=== PATIENT | female | born 1960 | race Caucasian/White ===

== ENCOUNTER 2016-04-11 13:19 | Emergency (ER) | payer OTHER ==
--- NOTE | 2016-04-11 17:58 | ED ORDER SUMMARY ---
..... Patient: JERO MARTINEZ OrderSheet [facility] VisitID: [id number] [place] [address] 55y, F Registration Date/Time: 04/11/2016 ORDER SHEET Weight: 90.7 kg (stated) Allergies: Aspirin, Latex, Statins GENERAL ORDERS: US Abdomen Limited (No) Urgent (14:20 04/11/2016 HBivens A.R.N.P.) (Ack 14:32 LTapper) (18:02 MWinterer R.N.) CBC w Diff Urgent (14:20 04/11/2016 HBivens A.R.N.P.) (Ack 14:32 LTapper) (14:38 DMaziarka R.N.) CMP Urgent (14:20 04/11/2016 HBivens A.R.N.P.) (Ack 14:32 LTapper) (14:38 DMaziarka R.N.) UA-Culture if indicated Urgent (14:20 04/11/2016 HBivens A.R.N.P.) (Ack 14:32 LTapper) (14:38 DMaziarka R.N.) Amylase Urgent (14:20 04/11/2016 HBivens A.R.N.P.) (Ack 14:32 LTapper) (14:38 DMaziarka R.N.) Lipase Urgent (14:20 04/11/2016 HBivens A.R.N.P.) (Ack 14:32 LTapper) (14:38 DMaziarka R.N.) MEDICATION ORDERS: IV FLUIDS: IV Saline Lock (14:20 04/11/2016 HBivens A.R.N.P.) (14:38 DMaziarka R.N.) ORDER SHEET NOTES: [Electronically signed by America Quevedo R.N. (18:57 04/11/2016)] [Electronically signed by Debi LunsfordR.N.P. (18:58 04/11/2016)] [Electronically locked/signed by America Quevedo R.N. (18:57 04/11/2016)]
--- NOTE | 2016-04-11 17:58 | ED NURSING NOTES ---
Clinical Report - Nurses [facility] [address] [place] [address] 04/11/2016 13:21 Patient: JERO MARTINEZ TRIAGE Triage time 13:57. Acuity: LEVEL 3. Chief Complaint: (Weakness wants answers to why she is not feeling well but has been worked up over a year ago). Alert. --14:02 America Quevedo R.N. 13:57 04/11/16. BP: 144/90. HR: 74. RR: 18. O2 saturation: 98%. Temp: 98 F. Pain level now 04/24. --14:02 America Quevedo R.N. Weight: 90.7 kg stated. Height/Length: 65 inches Per Patient. BMI: 33.3. --14:01 America Quevedo R.N. Medications Naprosyn Oral. --13:59 America Quevedo R.N. Tramadol HCL Oral. --13:59 America Quevedo R.N. MetFORMIN HCl Oral. --14:00 America Quevedo R.N. Ezetimibe Oral. --14:00 America Quevedo R.N. Allergies Aspirin. --14:00 America Quevedo R.N. Latex. --14:00 America Quevedo R.N. Statins. --14:00 America Quevedo R.N. History Arrived by private vehicle. Historian: patient. Primary physician ([facility]). Onset. (about 1 years). ( no specifics but just is "sick". Very vague with sx). PAST MEDICAL HX: Diabetes mellitus. Immunizations: up-to-date. SOCIAL HX: No alcohol use or drug use. --14:02 America Quevedo R.N. PHYSICAL ASSESSMENT GENERAL / NEURO / PSYCH: Alert. Oriented X 4. Appears anxious. HEENT: Pupils equal, round and reactive to light. RESPIRATORY: Respirations not labored. GI / : Abdomen soft and nontender. --14:03 America Quevedo R.N. NURSING PROGRESS NOTES Patient gowned. Call light placed in reach. Patient ready for evaluation- ED physician notified. --14:03 Amercia Quevedo R.N. Finger stick glucose: 89 mg/dL; performed by tech; result shown to the RN. --14:07 Lidna Hernández 14:38 04/11/2016 Site #1 started via IV in the right hand with an 18g angiocath; one attempt. Blood drawn: rainbow set. Labeled in the presence of the patient and sent to the lab. Saline lock flushed with 5 mL saline. --14:38 America Quevedo R.N. The patient is calm and resting quietly. --16:20 America Quevedo R.N. 16:19 04/11/16. BP: 125/76. HR: 77. RR: 20. O2 saturation: 100%. Pain level now 0/10. --16:20 America Quevedo R.N. Patient waiting for (Ultra sound). --16:20 America Quevedo R.N. ( Ultra sound in room). --17:06 America Quevedo R.N. DISPOSITION / DISCHARGE Departure time: 18:10. Condition at departure: improved. No learning barriers present. Discharge instructions provided and reviewed with the patient. Patient verbalized understanding. Written instructions provided in Montserr[place]. The patient was discharged home and accompanied by spouse. She left the Emergency Department ambulatory and via private vehicle. Spouse driving. --18:10 America Quevedo R.N. 18:08 04/11/16. BP: 141/94. HR: 73. RR: 16. O2 saturation: 100%. Pain level now 0/10. --18:10 America Quevedo R.N. Locked/Released at 04/11/2016 18:57 by America Quevedo R.N.
--- NOTE | 2016-04-11 17:58 | ED NURSING NOTES ---
Clinical Report - Nurses [facility] [address] [place] [address] 04/11/2016 13:21 Patient: JERO MARTINEZ TRIAGE Triage time 13:57. Acuity: LEVEL 3. Chief Complaint: (Weakness wants answers to why she is not feeling well but has been worked up over a year ago). Alert. --14:02 America Quevedo R.N. 13:57 04/11/16. BP: 144/90. HR: 74. RR: 18. O2 saturation: 98%. Temp: 98 F. Pain level now 04/24. --14:02 America Quevedo R.N. Weight: 90.7 kg stated. Height/Length: 65 inches Per Patient. BMI: 33.3. --14:01 America Quevedo R.N. Medications Naprosyn Oral. --13:59 America Quevedo R.N. Tramadol HCL Oral. --13:59 America Quevedo R.N. MetFORMIN HCl Oral. --14:00 America Quevedo R.N. Ezetimibe Oral. --14:00 America Quevedo R.N. Allergies Aspirin. --14:00 America Quevedo R.N. Latex. --14:00 America Quevedo R.N. Statins. --14:00 America Quevedo R.N. History Arrived by private vehicle. Historian: patient. Primary physician ([facility]sim). Onset. (about 1 years). ( no specifics but just is "sick". Very vague with sx). PAST MEDICAL HX: Diabetes mellitus. Immunizations: up-to-date. SOCIAL HX: No alcohol use or drug use. --14:02 America Quevedo R.N. PHYSICAL ASSESSMENT GENERAL / NEURO / PSYCH: Alert. Oriented X 4. Appears anxious. HEENT: Pupils equal, round and reactive to light. RESPIRATORY: Respirations not labored. GI / : Abdomen soft and nontender. --14:03 America Quevedo R.N. NURSING PROGRESS NOTES Patient gowned. Call light placed in reach. Patient ready for evaluation- ED physician notified. --14:03 America Quevedo R.N. Finger stick glucose: 89 mg/dL; performed by tech; result shown to the RN. --14:07 Linda Hernández 14:38 04/11/2016 Site #1 started via IV in the right hand with an 18g angiocath; one attempt. Blood drawn: rainbow set. Labeled in the presence of the patient and sent to the lab. Saline lock flushed with 5 mL saline. --14:38 America Quevedo R.N. The patient is calm and resting quietly. --16:20 America Quevedo R.N. 16:19 04/11/16. BP: 125/76. HR: 77. RR: 20. O2 saturation: 100%. Pain level now 0/10. --16:20 America Quevedo R.N. Patient waiting for (Ultra sound). --16:20 America Quevedo R.N. ( Ultra sound in room). --17:06 America Quevedo R.N. DISPOSITION / DISCHARGE Departure time: 18:10. Condition at departure: improved. No learning barriers present. Discharge instructions provided and reviewed with the patient. Patient verbalized understanding. Written instructions provided in Wallisian. The patient was discharged home and accompanied by spouse. She left the Emergency Department ambulatory and via private vehicle. Spouse driving. --18:10 America Quevedo R.N. 18:08 04/11/16. BP: 141/94. HR: 73. RR: 16. O2 saturation: 100%. Pain level now 0/10. --18:10 America Quevedo R.N. Locked/Released at 04/11/2016 18:57 by America Quevedo R.N.
--- NOTE | 2016-04-11 17:58 | ED ORDER SUMMARY ---
..... Patient: JERO MARTINEZ OrderSheet [facility] VisitID: [id number] [place] [address] 55y, F Registration Date/Time: 04/11/2016 ORDER SHEET Weight: 90.7 kg (stated) Allergies: Aspirin, Latex, Statins GENERAL ORDERS: US Abdomen Limited (No) Urgent (14:20 04/11/2016 HBivens A.R.N.P.) (Ack 14:32 LTapper) (18:02 MWinterer R.N.) CBC w Diff Urgent (14:20 04/11/2016 HBivens A.R.N.P.) (Ack 14:32 LTapper) (14:38 DMaziarka R.N.) CMP Urgent (14:20 04/11/2016 HBivens A.R.N.P.) (Ack 14:32 LTapper) (14:38 DMaziarka R.N.) UA-Culture if indicated Urgent (14:20 04/11/2016 HBivens A.R.N.P.) (Ack 14:32 LTapper) (14:38 DMaziarka R.N.) Amylase Urgent (14:20 04/11/2016 HBivens A.R.N.P.) (Ack 14:32 LTapper) (14:38 DMaziarka R.N.) Lipase Urgent (14:20 04/11/2016 HBivens A.R.N.P.) (Ack 14:32 LTapper) (14:38 DMaziarka R.N.) MEDICATION ORDERS: IV FLUIDS: IV Saline Lock (14:20 04/11/2016 HBivens A.R.N.P.) (14:38 DMaziarka R.N.) ORDER SHEET NOTES: [Electronically signed by America Quevedo R.N. (18:57 04/11/2016)] [Electronically signed by Debi LunsfordR.N.P. (18:58 04/11/2016)] [Electronically locked/signed by America Quevedo R.N. (18:57 04/11/2016)]
--- NOTE | 2016-04-11 17:58 | ED CLINICAL REPORT ---
Clinical Report - Physicians/Mid Levels [facility] [address] [place] [address] 04/11/2016 13:21 Patient: JERO MARTINEZ Time Seen: 1409; initial patient contact, initial documentation, patient care assumed. Arrived- By private vehicle. Historian- patient. HISTORY OF PRESENT ILLNESS Chief Complaint: ABDOMINAL PAIN. At its maximum, severity described as severe. When seen in the E.D., it was almost gone. It is described as "pain" and it is described as located in the right side of the back and right upper quadrant and radiating to the right upper back. This started about 1 1/2 years ago and is still present. No nausea, loss of appetite, vomiting or diarrhea. (c/o stool being beige/white color). No recent travel. Similar symptoms previously: Chronically, as bad. ( has had multiple tests and blood work, can't figure out why the stool is white). Recent medical care: The patient was seen recently in the office. ( saw dr marquez, had blood work done, was told if episode continued to go to er to have her gallbladder and liver checked). REVIEW OF SYSTEMS No constipation, black stools, hematemesis, difficulty with urination or pain with urination. No urinary frequency, bloody stools, fever, chest pain or difficulty breathing. All systems otherwise negative, except as recorded above. PAST HISTORY See nurses notes. PAST MEDICAL HX: Diabetes mellitus. Surgeries: Had hysterectomy. SOCIAL HISTORY Never smoker. No alcohol use or drug use. No recent travel. Is a local resident. FAMILY HISTORY Negative. ADDITIONAL NOTES The nursing notes have been reviewed with agreement regarding the chief complaint, HPI, ROS, PMH and patient medications and allergies. PHYSICAL EXAM Vital Signs: 04/11/2016 13:57 BP: 144/90. HR: 74. RR: 18. O2 saturation: 98%. Temp: 98 F. Have been reviewed as normal and appear to be correct. Appearance: Alert. Oriented X3. No acute distress. Eyes: Pupils equal, round and reactive to light. Eyes normal inspection. Neck: Normal inspection. Neck supple. CVS: Normal heart rate and rhythm. Heart sounds normal. Pulses normal. Respiratory: No respiratory distress. Breath sounds normal. Chest nontender. Abdomen: Soft. Mild tenderness in the right upper quadrant. Bowel sounds normal. No organomegaly. No mass. Tenderness present. Back: Normal inspection. Skin: Skin warm and dry. Normal skin color. No rash. Normal skin turgor. Extremities: Extremities exhibit normal ROM. No lower extremity edema. Neuro: Oriented X 3. No motor deficit. No sensory deficit. LABS, X-RAYS, AND EKG Abdominal Sonogram: Normal study. No acute disease. (per verbal report from [place]). Interpretation time: 17:39. Laboratory Tests: UA-Culture if indicated: (FRANK: 04/11/2016 14:30) ( MsgRcvd 04/11/2016 14:57) Final results Test Result Flag Units (Reference) URINE COLOR YELLOW URINE APPEARANCE CLEAR URINE GLUCOSE NEGATIVE (NEGATIVE) URINE BILIRUBIN NEGATIVE (NEGATIVE) URINE KETONE NEGATIVE (NEGATIVE) URINE SPECIFIC GRAVITY 1.010 (1.010-1.030) URINE PH 6.0 (5.0-8.0) URINE PROTEIN NEGATIVE (NEGATIVE) URINE UROBILINOGEN 0.2 EU/dL (0.2-1.0) URINE NITRITE NEGATIVE (NEGATIVE) URINE BLOOD TRACE-LYSED (NEGATIVE) URINE LEUK ESTERASE POSITIVE (NEGATIVE) URINE RBC 0-1 rbc/hpf (0-1) URINE WBC 5-10 wbc/hpf (0-1) URINE EPITHELIAL CELLS 3-5 EPI/hpf (0-5) URINE BACTERIA FEW (1+) (NONE SEEN) URINE COMMENT CULTURE INDICATED URINE CULTURES ARE SET-UP BASED ON THE FOLLOWING CRITERIA:POSITIVE NITRITEPOSITIVE LEUKOCYTE ESTERASEGREATER THAN 10 WHITE BLOOD CELLSMODERATE (2+) OR GREATER BACTERIA CBC w Diff: (FRANK: 04/11/2016 14:30) ( MsgRcvd 04/11/2016 14:58) Final results Test Result Flag Units (Reference) WHITE BLOOD COUNT 8.6 K/uL (4.5-11.5) RED BLOOD COUNT 4.82 M/uL (4.00-5.20) HEMOGLOBIN 14.5 gm/dL (12.0-16.0) HEMATOCRIT 43.0 % (36.0-46.0) MEAN CELL VOLUME 89 fL (80-100) MEAN CORPUSCULAR HGB 30 pg (26-34) MEAN CORPUSCULAR HGB CONC 34 g/dL (31-37) RED CELL DISTRIBUTION WIDTH 12.7 % (11.6-14.8) PLATELET COUNT 200 K/uL (150-400) NEUTROPHIL % 63.9 % (50-75) LYMPH % 28.3 % (25-40) MONO % 6.1 % (3-14) EOSINOPHIL % 1.3 % (0-4) BASOPHIL % 0.4 % (0-2) CMP: (FRANK: 04/11/2016 14:30) ( MsgRcvd 04/11/2016 15:10) Final results Test Result Flag Units (Reference) GLUCOSE 90 mg/dL (70-110) BUN 14 mg/dL (7-18) CREATININE 0.8 mg/dL (0.6-1.3) Estimated GFR >60 mL/min Estimated GFR- >60 mL/min Note: Persistent reduction over 3 months in eGFR<60 mL/min/1.73 m2 defines CKD. Patients with eGFR values>=60 mL/min/1.73 m2 may also have CKD if evidence ofpersistent proteinuria. Additional information may be foundat www.kidney.org. SODIUM 144 mmol/L (136-145) POTASSIUM 3.5 mmol/L (3.5-5.1) CHLORIDE 105 mmol/L (98-107) CARBON DIOXIDE 27 mmol/L (21-32) CALCIUM 8.7 mg/dL (8.5-10.1) TOTAL PROTEIN 7.2 g/dL (6.4-8.2) ALBUMIN 4.2 g/dL (3.3-5.0) BILIRUBIN, TOTAL 0.4 mg/dL (0.0-1.0) ALKALINE PHOSPHATASE 91 U/L (46-116) AST (SGOT) 22 U/L (15-37) ALT (SGPT) 31 U/L (12-78) LIPASE 162 U/L (73-393) AMYLASE 39 U/L (25-115) . PROGRESS AND PROCEDURES Patient counseled in person regarding the patient's stable condition, test results and diagnosis. 17:39. Differential Diagnosis: I considered gastritis, gastroenteritis, peptic ulcer disease, gastroesophageal reflux disease, acute appendicitis, diverticulitis, colon cancer, Crohn's disease, obstipation, biliary colic, cholecystitis, cholelithiasis, hepatitis, pancreatitis, common bile duct obstruction, hernia, urinary tract infection, ureterolithiasis and viral syndrome as a possible cause of abdominal pain in this patient. This is a partial list of diagnoses considered. Above considerations are based on history and physical exam. Differential diagnosis was discussed with patient. Disposition: Discharged home in good and improved condition (17:58). Condition: good and stable. CLINICAL IMPRESSION Acute right upper quadrant abdominal pain of undetermined cause. INSTRUCTIONS Warnings: GENERAL WARNINGS: Return or contact your physician immediately if your condition worsens or changes unexpectedly, if not improving as expected, or if other problems arise. SPECIFICALLY, return if you develop pain in the abdomen, fever, the inability to keep fluids down, blood in vomitus, blood in diarrhea, fainting or lightheadedness. Follow-up: Follow up with your doctor in about three days even if well. Call for an appointment. Summary of care provided to patient. Understanding of the discharge instructions verbalized by patient. (Electronically signed by Debi Lunsford A.R.N.P. 04/11/2016 18:58)
--- NOTE | 2016-04-11 18:58 | ED DISCHARGE INSTRUCTIONS ---
Patient: JERO MARTINEZ General Instructions [facility] VisitID: [id number] [place] [address] 55y, F Registration Date/Time: 04/11/2016 Acute right upper quadrant abdominal pain of undetermined cause. INSTRUCTIONS Warnings: GENERAL WARNINGS: Return or contact your physician immediately if your condition worsens or changes unexpectedly, if not improving as expected, or if other problems arise. SPECIFICALLY, return if you develop pain in the abdomen, fever, the inability to keep fluids down, blood in vomitus, blood in diarrhea, fainting or lightheadedness. Follow-up: Follow up with your doctor in about three days even if well. Call for an appointment. Summary of care provided to patient. Understanding of the discharge instructions verbalized by patient. ADDITIONAL INFORMATION Abdominal Pain, Unknown Cause (Female) The exact cause of your abdominal (stomach) pain is not certain. This does not mean that this is something to worry about, or the right tests were not done. Everyone likes to know the exact cause of the problem, but sometimes with abdominal pain, there is no clear-cut cause, and this could be a good thing. The good news is that your symptoms can be treated, and you will feel better. Your condition does not seem serious now; however, sometimes the signs of a serious problem may take more time to appear. For this reason,it is important for you to watch for any new symptoms, problems,or worsening of your condition. Over the next few days, the abdominal pain may come and go, or be continuous. Other common symptoms can include nausea and vomiting. Sometimes it can be difficult to tell if you feel nauseous, you may just feel bad and not associate that feeling with nausea. Constipation, diarrhea, and a fever may go along with the pain. The pain may continue even if treated correctly over the following days. Depending on how things go, sometimes the cause can become clear and may require further or different treatment. Additional evaluations, medications, or tests may be needed. Home care Your health care provider may prescribe medications for pain, symptoms, or an infection. Follow the health care provider's instructions for taking these medications. General care Rest until your next exam. No strenuous activities. Try to find positions that ease discomfort. A small pillow placed on the abdomen may help relieve pain. Something warm on your abdomen (such as a heating pad) may help, but be careful not to burn yourself. Diet Do not force yourself to eat, especially if having cramps, vomiting, or diarrhea. Water is important so you do not get dehydrated. Soup may also be good. Sports drinks may also help, especially if they are not too acidic. Make sure you don't drink sugary drinks as this can make things worse. Take liquids in small amounts. Do not guzzle them. Caffeine sometimes makes the pain and cramping worse. Avoid dairy products if you have vomiting or diarrhea. Don't eat large amounts at a time. Wait a few minutes between bites. Eat a diet low in fiber (called a low-residue diet). Foods allowed include refined breads, white rice, fruit and vegetable juices without pulp, tender meats. These foods will pass more easily through the intestine. Avoid whole-grain foods, whole fruits and vegetables, meats, seeds and nuts, fried or fatty foods, dairy, alcohol and spicy foods until your symptoms go away. Follow-up care Follow up with your health care provider as instructed, or if your pain does not begin to improve in the next 24 hours. When to seek medical care Seek prompt medical care if any of the following occur: Pain gets worse or moves to the right lower abdomen New or worsening vomiting or diarrhea Swelling of the abdomen Unable to pass stool for more than three days Fever of 100.4F (38C) or higher, or as directed by your healthcare provider. Blood in vomit or bowel movements (dark red or black color) Jaundice (yellow color of eyes and skin) Weakness, dizziness Chest, arm, back, neck or jaw pain Unexpected vaginal bleeding or missed period Call 911 Call emergency services if any of the following occur: Trouble breathing Confusion Fainting or loss of consciousness Rapid heart rate Seizure You have been given the following additional information: Abdominal Pain, Unknown Cause, (Female) (Electronically signed by Debi Lunsford A.R.N.P. 04/11/2016 18:58)
--- NOTE | 2016-04-11 18:58 | ED MAR SUMMARY ---
..... Medication Administration Record [facility] [address] [place], [place] [id number] Patient: JERO MARTINEZ Visit ID: [id number] 55y, F Weight: 90.7 kg Height/Length: 65 in BMI: 33.3 ALLERGIES: Statins, Latex, Aspirin
--- NOTE | 2016-04-11 18:58 | ED MAR SUMMARY ---
..... Medication Administration Record [facility] [address] [place], [place] [id number] Patient: JERO MARTINEZ Visit ID: [id number] 55y, F Weight: 90.7 kg Height/Length: 65 in BMI: 33.3 ALLERGIES: Statins, Latex, Aspirin
--- NOTE | 2016-04-11 18:59 | ED MED RECONCILIATION SUMMARY ---
Patient: JERO MARTINEZ Medication Reconciliation Report [facility] VisitID: [id number] [address] [place] [address] 55y, F Registration Date/Time: 04/11/2016 Weight: 90.7 kg Height/Length: 65 in. BMI: 33.3 ALLERGIES: Aspirin, Latex, Statins The patient's Home Medications are listed below: THE FOLLOWING MEDICATIONS NEED TO BE RECONCILED: Ezetimibe Oral MetFORMIN HCl Oral Naprosyn Oral Tramadol HCL Oral The source(s) of the original Home Medication information: Not obtained. The following Medications were given to the patient in the Emergency Department: None. The following Medications were prescribed to the patient: None.
--- NOTE | 2016-04-11 18:59 | ED MED RECONCILIATION SUMMARY ---
Patient: JERO MARTINEZ Medication Reconciliation Report [facility] VisitID: [id number] [address] [place] [address] 55y, F Registration Date/Time: 04/11/2016 Weight: 90.7 kg Height/Length: 65 in. BMI: 33.3 ALLERGIES: Aspirin, Latex, Statins The patient's Home Medications are listed below: THE FOLLOWING MEDICATIONS NEED TO BE RECONCILED: Ezetimibe Oral MetFORMIN HCl Oral Naprosyn Oral Tramadol HCL Oral The source(s) of the original Home Medication information: Not obtained. The following Medications were given to the patient in the Emergency Department: None. The following Medications were prescribed to the patient: None.
--- NOTE | 2016-04-11 20:46 | DIAGNOSTIC IMAGING REPORT ---
PROCEDURE: US ABDOMEN ULTRASOUND-LIMITED INDICATION: Right upper quadrant pain x 1 year, initial encounter TECHNIQUE: Lr scale and color Doppler sonographic images of the abdomen were obtained. COMPARISON: None. FINDINGS: Normal gallbladder and CBD (3.8 mm). Negative Rees's sign. Liver measures 14.6 cm with increased echogenicity. Normal pancreas. IVC is patent. Hepatopetal flow. Normal right kidney measures 11.3 cm. IMPRESSION: 1. Hepatic steatosis versus intrinsic liver disease 2. Normal gallbladder
== END 2016-04-11 18:10 | disposition home or self-care (01) ==
LOC: ED SRH 13:19
DX: R10.11 Right upper quadrant pain (principal); E11.9 Type 2 diabetes mellitus without complications; Z79.891 Long term (current) use of opiate analgesic; Z79.84 Long term (current) use of oral hypoglycemic drugs; Z88.4 Allergy status to anesthetic agent; Z91.040 Latex allergy status; Z88.8 Allergy status to other drugs, medicaments and biological substances
CPT/HCPCS: 90004; 90098; 90100; 90469; 92235; 92530; 95059